=== PATIENT | female | born 1980 | race African-American/Black ===

== ENCOUNTER 2018-03-06 13:35 | Emergency (ER) | payer BC, SELFPAY ==
[2018-03-06 14:13] LABS: Bilirubin Negative (Negative); Blood, Urine Negative (Negative); Clarity CLEAR (Clear); Glucose, Urine (Dipstick) Negative (Negative); Leukocyte Negative (Negative); Nitrite Negative (Negative); Protein, Urine (Dipstick) Negative (Neg-Trace); Specific Gravity, Urine 1.017 (1.002-1.036); Urobilinogen 0.2 mg/dL (0.2-1.0)
[2018-03-06 14:18] LABS: #Basophils 0.1 thou/uL (0.0-0.2); #Eosinphils 0.3 thou/uL (0.0-0.7); #Lymphocytes 4.3 thou/uL (1.20-3.40); #Monocytes 0.6 thou/uL (0.11-0.59); %Eosinophils 2.8 % (0.0-10.0); %Lymphocytes 46.3 % (21.0-51.0); %Monocytes 6.3 % (0.0-10.0); %Neutrophils 43.6 % (42.0-75.0); Hemoglobin 13.8 g/dL (12.0-16.0); Mean Corpuscular HGB CONC 33.8 g/dL (32.0-36.0); Mean Corpuscular Volume 91.6 fL (78.0-98.0); Mean Platelet Volume 7.1 fL (7.4-10.4); Platelet Count 280 thou/uL (130-400); Red Blood Cell (RBC) Count 4.47 mill/uL (4.20-5.40); White Blood Cell (WBC) Count 9.3 thou/uL (4.8-10.8)
[2018-03-06 14:25] LABS: Pregnancy Test - Urine (BHCG) Negative (Negative); Pregu Control Background? CLEAR/WHITE (CLR/WHITE); Pregu Control Bar Appear? YES (CONTROL BAR); Specific Gravity 1.017 (1.002-1.036)
[2018-03-06 14:51] LABS: ALT (SGPT) 15 U/L (8-55); AST (SGOT) 17 U/L (5-34); Albumin 4.1 g/dL (3.5-5.0); Alkaline Phosphatase 81 U/L (40-150); Anion Gap 13 mmol/L (10-20); BUN (Urea Nitrogen) 10 mg/dL (7.0-18.7); Bilirubin, Total 0.3 mg/dL (0.2-1.2); Calc. Creatinine Clearance 0 mL/min (70-130); Calcium 9.4 mg/dL (7.8-10.44); Carbon Dioxide 25 mmol/L (22-29); Chloride 104 mmol/L (98-107); Estimated GFR-MDRD 84; Globulin 3.5 g/dL (2.4-3.5); Glucose 83 mg/dL (70-105); Lipase 9 U/L (8-78); Potassium 4.1 mmol/L (3.5-5.1); Protein, Total 7.6 g/dL (6.0-8.3); Sodium 138 mmol/L (136-145)
[2018-03-06] MEDS ORDERED: Promethazine HCl 25 MG/ML VIAL ONE (15:59)
--- NOTE | 2018-03-06 16:41 | RAD ---
FRONTAL RADIOGRAPH CHEST SUPINE AND UPRIGHT FRONTAL IMAGING ABDOMEN AND PELVIS: Date: 03/06/18 COMPARISON: None. HISTORY: Nausea and vomiting. FINDINGS: Frontal radiograph chest demonstrates no pneumothorax, pleural fluid, lobar consolidation, or alveola r edema. There is increased linear density in the medial right lung base which could signify basilar volume loss or infiltrate, possibly in the right middle lobe. No pneumothorax, pleural effusion, or l obar consolidation. Upright imaging demonstrates no free intraperitoneal air. The bowel gas pattern a ppears nonobstructed. IMPRESSION: Increased linear density in the medial right lung base may signify right middle lobe volume loss or i nfiltrate. No free intraperitoneal air or evidence of small bowel obstruction. Recommend follow-up PA and lateral imaging of the chest. POS: [facility]
== END 2018-03-06 16:50 | disposition home or self-care (01) ==
LOC: ERS 13:35
DX: K59.00 Constipation, unspecified (principal); J45.909 Unspecified asthma, uncomplicated; F17.210 Nicotine dependence, cigarettes, uncomplicated
CPT/HCPCS: 36415; 74022; 80053; 81003; 81025; 83690; 85025; J2550

== ENCOUNTER 2018-09-11 19:38 | Emergency (ER) | payer BC, SELFPAY ==
--- NOTE | 2018-09-11 20:23 | RAD ---
TWO VIEWS OF THE CHEST: 09/11/18 COMPARISON: 08/30/14 HISTORY: Cough and fever for a few days. FINDINGS: Two views of the chest show normal sized cardiomediastinal silhouette. There is no evidence of consol idation, mass, or pleural effusion. The bones are unremarkable. IMPRESSION: No evidence of acute cardiopulmonary disease. POS: [facility]
[2018-09-11] MEDS ORDERED: predniSONE 20 MG TAB ONE (20:28)
[2018-09-11] MEDS ORDERED: Ibuprofen 800 MG TAB ONE (20:28)
== END 2018-09-11 20:50 | disposition home or self-care (01) ==
LOC: ERS 19:38
DX: J06.9 Acute upper respiratory infection, unspecified (principal); J45.909 Unspecified asthma, uncomplicated; F17.210 Nicotine dependence, cigarettes, uncomplicated
CPT/HCPCS: 71046; 87804; J7506

== ENCOUNTER 2019-06-30 23:05 | Emergency (ER) | payer BC, SELFPAY ==
[2019-06-30] MEDS ORDERED: Acetaminophen 500 MG TAB ONE (23:38)
[2019-07-01] MEDS ORDERED: Ibuprofen 800 MG TAB ONE (00:14)
== END 2019-07-01 00:41 | disposition home or self-care (01) ==
LOC: ERS 23:05
DX: J06.9 Acute upper respiratory infection, unspecified (principal); Z71.6 Tobacco abuse counseling; F17.210 Nicotine dependence, cigarettes, uncomplicated; J45.909 Unspecified asthma, uncomplicated
CPT/HCPCS: 87804; 99406